=== PATIENT | male | born 1990 | race African-American/Black ===

== ENCOUNTER 2021-09-18 22:20 | Emergency (ER) | payer MEDICAID, OTHER, SELFPAY ==
[~2021-09-18] VITALS: Ht 167.6 cm; Wt 63.5 kg
[2021-09-18 22:25] VITALS: BP_SYST 128
--- NOTE | 2021-09-18 22:25 | NUR ---
Patient triaged and placed in the tent. VSS and patient appears in no acute distress at this time. Awaiting available bed, and MD notified of need for MSE.
--- NOTE | 2021-09-19 01:10 | NUR ---
JEAN Baird at bedside examining patient in the tent.
[2021-09-19] MEDS ORDERED: IBUPROFEN 600 MG TABLET PO ONE (01:15)
[2021-09-19] MEDS ORDERED: MAG HYDROX/AL HYDROX/SIMETH 30 ML, LIDOCAINE VISCOUS 2% 15ML (PO) 15 ML, DICYCLOMINE HC... PO ONE ×3 (01:15)
[2021-09-19] MEDS ORDERED: HYDROcodone/ACETAMIN 5-325 MG TAB (NORCO/ VICODIN) PO ONE (01:15)
[2021-09-19] MEDS ORDERED: IBUP-1969 PO ×2 (02:03→02:07)
[2021-09-19] MEDS ORDERED: FAMO40TA71 PO (02:07)
[2021-09-19] MEDS ORDERED: ANT30 PO (02:07)
--- NOTE | 2021-09-19 02:41 | NUR ---
Patient given written and verbal discharge instructions and verbalizes understanding. ER MD discussed with patient the results and treatment provided. Patient in stable condition. ID arm band removed. Rx of Famotidine,Ibuprofen,mylanta given. Patient educated on pain management and to follow up with PMD. Pain Scale 5/10. Opportunity for questions provided and answered. Medication side effect fact sheet provided.
[2021-09-19 03:12] VITALS: BP_SYST 121
== END 2021-09-19 03:12 | disposition home or self-care (01) ==
LOC: SED 22:20
DX: U07.1 COVID-19 (principal); K29.00 Acute gastritis without bleeding; F12.90 Cannabis use, unspecified, uncomplicated; Z79.899 Other long term (current) drug therapy
CPT/HCPCS: 71045; 86710; 87426; 99284; J2001; 36415

== ENCOUNTER 2022-11-04 18:26 | Emergency (ER) | payer MEDICAID, OTHER ==
[~2022-11-04] VITALS: Ht 177.8 cm; Wt 61.2 kg
[~2022-11-04 18:26] MED LIST: ANT30 PO; FAMO40TA71 PO; IBUP-1969 PO
[2022-11-04] MEDS ORDERED: ONDANSETRON HCL 4 MG/2 ML VIAL IVP ONE (19:15)
[2022-11-04] MEDS ORDERED: KETOROLAC TROMETHAMINE 30 MG VIAL IVP ONE (19:15)
[2022-11-04] MEDS ORDERED: NACL 0.9% 1,000 ML IV ONE (19:15)
[2022-11-04 19:36] LABS: BASOPHILS # (AUTO) 0.1 K/uL (0.0-0.2); BASOPHILS % (AUTO) 0.6 % (0.0-2.0); HEMATOCRIT 41.3 % (36-54); HEMOGLOBIN 14.8 g/dL (14.0-18.0); LYMPHOCYTES # (AUTO) 0.6 K/uL (1.0-5.5); LYMPHOCYTES % (AUTO) 5.4 % (20.5-51.5); MEAN CORPUSCULAR HEMOGLOBIN 27 pg (27-31); MEAN CORPUSCULAR HGB CONC 36 % (32-36); MEAN CORPUSCULAR VOLUME 75 fL (79.0-98.0); MONOCYTES # (AUTO) 0.2 K/uL (0.0-1.0); MONOCYTES % (AUTO) 1.9 % (1.7-9.3); NEUTROPHILS # (AUTO) 9.6 K/uL (1.8-7.7); NEUTROPHILS % (AUTO) 92.1 % (40.0-70.0); PLATELET COUNT (AUTO) 150 K/uL (130-430); RED BLOOD CELL COUNT(AUTO) 5.52 MIL/uL (4.2-6.2); RED CELL DISTRIBUTION WIDTH 13.6 % (9.0-15.0); WHITE BLOOD COUNT (AUTO) 10.4 K/uL (4.8-10.8)
[2022-11-04 19:47] LABS: ANION GAP 19 (5-15); CALCIUM 9.9 mg/dL (8.4-11.0); CHLORIDE 103 mmol/L (98-107); CREATININE 0.94 mg/dL (0.55-1.30); GLUCOSE 104 mg/dL (70-99); UREA NITROGEN, BLOOD 15 mg/dL (8-21)
[2022-11-04 19:52] LABS: ALANINE AMINOTRANSFERASE 29 U/L (12-78); ALBUMIN 4.9 g/dL (3.4-4.8); ASPARTATE AMINOTRANSFERASE 28 U/L (10-37); LIPASE 32 U/L (73-393); TOTAL BILIRUBIN 1.3 mg/dL (0.0-1.0)
[2022-11-04 19:54] LABS: ALCOHOL, BLOOD < 3 mg/dL (<10); GFR AFRICAN AMERICAN 120 mL/min (>90)
[2022-11-04 20:28] VITALS: BP_SYST 146
[2022-11-04] MEDS ORDERED: ONDA-8 TL (20:38)
[2022-11-04] MEDS ORDERED: SIME125T69 PO (20:38)
--- NOTE | 2022-11-04 21:26 | NUR ---
Patient wheeled to bed 6 for further treatment
[2022-11-04] MEDS ORDERED: KETOROLAC TROMETHAMINE 30 MG VIAL ONE (21:35)
[2022-11-04] MEDS ORDERED: ONDANSETRON HCL 4 MG/2 ML VIAL ONE (21:36)
--- NOTE | 2022-11-04 21:42 | NUR ---
First contact with the pt. C/o mid abdominal pain 10 sharp x 1 day. Also c/o N/V. Denies diarrhea and constipation.
[2022-11-04 23:06] VITALS: BP_SYST 120
== END 2022-11-04 22:55 | disposition home or self-care (01) ==
LOC: SED 18:26
DX: R11.2 Nausea with vomiting, unspecified (principal); R10.9 Unspecified abdominal pain; R53.1 Weakness; Z79.899 Other long term (current) drug therapy
CPT/HCPCS: 99284; 96374; 96361; 96375; 80053; 83690; 85025; 36415; G0482; J1885; J2405; J7030